=== PATIENT | male | born 1995 | race Two or more races ===

== ENCOUNTER 2018-07-10 10:37 | Emergency (ER) | payer OTHER ==
--- NOTE | 2018-07-10 10:58 | EDPHY ---
H & P Stated Complaint: back pain Time Seen by Provider: 07/10/18 10:57 - Personal History Current Tetanus Diphtheria and Acellular Pertussis (TDAP): Yes - Medical/Surgical History Hx Asthma: No Hx Chronic Respiratory Disease: No Hx Diabetes: No Hx Cardiac Disease: No Hx Renal Disease: No Hx Cirrhosis: No Hx Alcoholism: No Hx HIV/AIDS: No Hx Splenectomy or Spleen Trauma: No - Social History Smoking Status: Current every day smoker Constitutional: Initial Vital Signs Temperature (C) 37.2 C 07/10/18 10:54 Heart Rate 86 07/10/18 10:54 Respiratory Rate 16 07/10/18 10:54 Blood Pressure 122/68 H 07/10/18 10:54 O2 Sat (%) 98 07/10/18 10:54 O2 Delivery Mode Room Air Allergies/Adverse Reactions: No Known Allergies Allergy (Unverified 07/10/18 10:53) Home Medications: Medication Instructions Recorded Hydrocodone/APAP 5/325 [[place] 1 - 2 each PO Q4-6PRN PRN #20 tab 07/10/18 5/325] Ibuprofen [Motrin] 800 mg PO Q8 #20 tab 07/10/18 methylPREDNISolone [Medrol Dose 1 each PO AD #1 ea 07/10/18 Gautam] Medical Decision Making ED Course/Re-evaluation: CHIEF COMPLAINT: Back pain HISTORY OF PRESENT ILLNESS: The patient is a 22 y/o male complaining of acute onset midback pain secondary to bending over and lifting groceries yesterday around 15:00, about 20 hours ago. He had immediate pain in the middle of his lower thoracic back that he describes as "throbbing." Bending over and transitioning positions aggravates his pain. Pain persisted through the night and today so he came to the ED for evaluation. He denies radiculopathy, weakness , paresthesias, or incontinence. He is typically healthy. No recent illness or direct trauma to his back. No prior back injuries or surgery. REVIEW OF SYSTEMS: A comprehensive 10 system review of systems is otherwise negative aside from elements mentioned in the history of present illness and medical decision making. PHYSICAL EXAM: HR, BP, O2 Sat, RR. Temp noted General Appearance: Alert, well hydrated, appropriate, and non-toxic appearing. Head: Atraumatic without scalp tenderness or obvious injury Eyes: Pupils equal, round, reactive to light and accommodation, EOMI, no trauma , no injection. Nose: Atraumatic, no rhinorrhea, clear. Throat: Mucus membranes moist. Neck: Supple, nontender, no lymphadenopathy. Respiratory: No retractions, no distress, no wheezes, and no accessory muscle use. Lungs are clear to auscultation bilaterally. Cardiovascular: Regular rate and rhythm, no murmurs, rubs, or gallops. Good capillary refill all extremities. Gastrointestinal: Abdomen is soft, nontender, non-distended, no masses, no rebound, no guarding, no peritoneal signs. Musculoskeletal: Mild thoracic tenderness around T12-L1. Normal active ROM of all extremities, atraumatic. Neurological: Alert, appropriate, and interactive. The patient has non-focal cranial nerves, motor, sensory, and cerebellar exam. Skin: No rashes, good turgor, no nodules on palpation. Past medical history: Denies Past surgical history: Denies Family history: Noncontributory Social history: Daily smoker. [employer] student. Single. DIAGNOSTICS/PROCEDURES/CRITICAL CARE TIME: Not indicated. DIFFERENTIAL DIAGNOSIS: The differential diagnosis for the patient's back pain included but was not limited to musculoskeletal pain, epidural abscess, herniated disk, spinal fracture, and intra-abdominal causes including urinary system. MEDICAL DECISION MAKING: This is a healthy 22 y/o male who presents with a 1-day history of acute onset midback pain secondary to bending over and picking up groceries. He has mild lower thoracic tenderness. Neuro exam is nonfocal. No indication for emergent imaging. Symptoms consistent with back strain, possible disc herniation. Plan for conservative treatment with ibuprofen, Medrol, and [place]. Referral to neurosurgery provided if needed. Return precautions discussed. He is comfortable with this plan. Departure - Departure Disposition: Home, Routine, Self-Care Clinical Impression: Back strain Qualifiers: Encounter type: initial encounter Qualified Code(s): S39.012A - Strain of muscle, fascia and tendon of lower back, initial encounter Condition: Good Instructions: Thoracic Back Strain (ED) Additional Instructions: 1. Take 800mg ibuprofen every 8 hours as directed for pain and inflammation over the next few days. 2. Take Medrol dose pack as prescribed. Be sure to complete the entire prescription. 3. Use [place] as prescribed if needed for severe pain. This medication contains a narcotic and can make you drowsy and constipated. Do not use prior to driving. 4. Follow up with back specialist for unimproved symptoms over the next week. 5. Return to the ED for severe pain, weakness or numbness in your legs or genitals, incontinence, or other worsening of condition. Referrals: Holland Zhong MD [Medical Doctor] - As per Instructions Prescriptions: Hydrocodone/APAP 5/325 [[place] 5/325] 1 - 2 each PO Q4-6PRN PRN #20 tab PRN Reason: Pain, Moderate Ibuprofen [Motrin] 800 mg PO Q8 #20 tab methylPREDNISolone [Medrol Dose Gautam] 1 each PO AD #1 ea Report Scribed for: Bg Gage Report Scribed by: Eli Juan Date of Report: 07/10/18 Time of Report: 11:00
[2018-07-10 11:16] VITALS: BP 128/75
== END 2018-07-10 11:16 | disposition home or self-care (01) ==
DX: S39.012A Strain of muscle, fascia and tendon of lower back, initial encounter (principal); X50.1XXA Overexertion from prolonged static or awkward postures, initial encounter; Y92.9 Unspecified place or not applicable; Y99.9 Unspecified external cause status; Y93.89 Activity, other specified

== ENCOUNTER 2018-09-07 14:05 | Emergency (ER) | payer OTHER ==
[2018-09-07 14:12] VITALS: BP 125/92
--- NOTE | 2018-09-07 14:52 | EDPHY ---
H & P Time Seen by Provider: 09/07/18 14:19 HPI/ROS: Chief complaint: Patient is requesting a school note to withdrawal from school History of present illness: This is a 22-year-old male who presents to the emergency department requesting a school note so he can withdraw from school for the semester. He states he has dealt with a number of mental health issues over the school year including thoughts of harming himself. He states currently he has been feeling well. Over the last month he has not had significant problems. However the amount of problems he has had over the school years has made it hard for him to complete school. Again there is no active concern. He denies SI. He denies HI. He denies illness or injury. He would just like a withdrawal note for school. Smoking Status: Never smoked Physical Exam: General: Alert, nontoxic. Psych: Patient is alert and oriented. Appropriate affect. Conversing easily. Constitutional: Initial Vital Signs Temperature (C) 37 C 09/07/18 14:10 Heart Rate 88 09/07/18 14:10 Respiratory Rate 16 09/07/18 14:10 Blood Pressure 125/92 H 09/07/18 14:10 O2 Sat (%) 95 09/07/18 14:10 O2 Delivery Mode Room Air Allergies/Adverse Reactions: No Known Allergies Allergy (Unverified 09/07/18 14:10) MDM/Departure - MDM ED Course/Re-evaluation: Patient seen under the supervision of my secondary supervising physician Dr. Erick Aguayo. Patient is presenting requesting a school note to withdrawal for the semester due to psych problems he has had over the last few months. He currently does not have active issues. The psychiatric team has seen him and agree that there does not appear to be active issues. He has been directed back to student health [facility] to discuss this further. No note is provided from the emergency room. - Depart Disposition: Home, Routine, Self-Care Clinical Impression: Mental health problem Condition: Good Instructions: [facility], Suicide Prevention (ED) Additional Instructions: Follow-up with a mental health provider for continued care If her symptoms return or new symptoms develop return to the emergency room for recheck Referrals: NONE *PRIMARY CARE P,. [Primary Care Provider] - As per Instructions [facility] [Clinic] - As per Instructions [facility] [[facility]] - As per Instructions
--- NOTE | 2018-09-07 15:05 | ASMTLCPROG ---
Notes Note: Notes: [facility] was asked to meet with pt. Pt had stated he came to hospital to get a note so he could drop this semester at . Pt reported he has been depressed over the past few weeks and has experienced difficulty completing his academic work at school. Pt states he is not having any suicidal thoughts now but feels it is too late to make up for lost time with his academics. Pt stated he wants to re-enroll in classes starting this Summer. Pt informed we do not complete MH evaluations in the ED to determine whether pt. should benefit from dropping out for the semester. Pt therefore declined to stay in the ED but to instead seek referred options. It was recommended pt. go to the [facility] at where he could receive assessment for MH services along with any assistance regarding his academics decisions. Pt continued to state he is not having any thoughts of self harm, suicidal thoughts or harm to others. Pt also accepted referral to [facility] if needing additional assistance after leaving the ED. Pt expressed feeling comfortable and willing to f/u with resources. Date Signed: 09/07/2018 03:04 PM Electronically Signed By:Debbie Zuñiga
== END 2018-09-07 15:05 | disposition home or self-care (01) ==
DX: Z02.79 Encounter for issue of other medical certificate (principal)